=== PATIENT | male | born 1985 | race African-American/Black ===

== ENCOUNTER 2017-08-20 10:38 | Emergency (ER) | payer MEDICAID, OTHER ==
[~2017-08-20] VITALS: Ht 175.3 cm; Wt 61.0 kg
[2017-08-20] MEDS ORDERED: IBUPROFEN 600MG TABLET PO ONE (11:30)
[2017-08-20 13:43] VITALS: BP 122/68
== END 2017-08-20 13:57 | disposition home or self-care (01) ==
LOC: ER 10:47
DX: K62.89 Other specified diseases of anus and rectum (principal); J45.909 Unspecified asthma, uncomplicated; F12.10 Cannabis abuse, uncomplicated
CPT/HCPCS: 93005; 99283

== ENCOUNTER 2018-05-02 13:20 | Emergency (ER) | payer MEDICAID ==
[~2018-05-02] VITALS: Ht 175.3 cm; Wt 61.0 kg
[2018-05-02 13:24] VITALS: BP 108/54
== END 2018-05-02 18:29 | disposition left against medical advice (07) ==
LOC: ER 13:20
DX: Z53.21 Procedure and treatment not carried out due to patient leaving prior to being seen by health care provider (principal)